=== PATIENT | male | born 1950 | race Caucasian/White ===

== ENCOUNTER 2018-05-19 02:39 | Outpatient (CLI) | payer MEDICARE | END 2018-05-19 23:59 | disposition home or self-care (01) | LOC: DIABETIC 02:39 | PROVIDERS: ATTEND Specialist | DX: E10.9 Type 1 diabetes mellitus without complications (principal) | CPT/HCPCS: G0108 ==

== ENCOUNTER 2018-08-23 03:13 | Outpatient (CLI) | payer MEDICARE | END 2018-08-23 23:59 | disposition home or self-care (01) | LOC: DIABETIC 03:13 | PROVIDERS: ATTEND Specialist | DX: E10.9 Type 1 diabetes mellitus without complications (principal); Z79.82 Long term (current) use of aspirin; Z91.048 Other nonmedicinal substance allergy status | CPT/HCPCS: G0108 ==

== ENCOUNTER 2018-12-01 02:21 | Outpatient (CLI) | payer MEDICARE | END 2018-12-01 23:59 | disposition home or self-care (01) | LOC: DIABETIC 02:21 | PROVIDERS: ATTEND Specialist | DX: E10.9 Type 1 diabetes mellitus without complications (principal); Z79.82 Long term (current) use of aspirin; Z79.4 Long term (current) use of insulin; Z91.048 Other nonmedicinal substance allergy status | CPT/HCPCS: G0108 ==

== ENCOUNTER 2023-11-10 07:57 | Outpatient (CLI) | payer OTHER ==
[2023-11-10 08:59] LABS: FREE T4 (FREE THYROXINE) 1.1 NG/DL (0.73-1.40); THYROID STIMULATING HORMONE 1.38 ulU/ml (0.34-4.50)
== END 2023-11-10 23:59 | disposition home or self-care (01) ==
LOC: LAB 07:57
PROVIDERS: ATTEND Chiropractor
DX: E07.9 Disorder of thyroid, unspecified (principal)
CPT/HCPCS: 36415; 84439; 84443; 84481